=== PATIENT | male | born 1985 | race African-American/Black ===

== ENCOUNTER 2019-04-14 08:43 | Emergency (ER) | payer SELFPAY ==
[~2019-04-14] VITALS: Ht 172.7 cm; Wt 72.3 kg
[2019-04-14 08:52] VITALS: BP 140/94
[2019-04-14] MEDS ORDERED: QUET25TA PO (09:13)
== END 2019-04-14 09:59 | disposition home or self-care (01) ==
LOC: ER 09:29
DX: S09.8XXA Other specified injuries of head, initial encounter (principal); F79 Unspecified intellectual disabilities; W01.198A Fall on same level from slipping, tripping and stumbling with subsequent striking against other object, initial encounter; Y93.89 Activity, other specified; Y92.018 Other place in single-family (private) house as the place of occurrence of the external cause
CPT/HCPCS: 99281